=== PATIENT | male | born 1935 | race Caucasian/White ===

== ENCOUNTER 2020-11-18 12:29 | Emergency (ER) | payer OTHER, MEDICAID ==
[~2020-11-18] VITALS: Ht 160 cm; Wt 54.4 kg
--- NOTE | 2020-11-18 12:29 | NUR ---
Patient BIBA BLS, transferred to bed 5. RN evaluating the patient at bedside.
[2020-11-18 12:32] VITALS: BP 127/85
--- NOTE | 2020-11-18 12:38 | NUR ---
84 y/o male biba from home c/o black tarry stools x 5 days. Told by primary care doctor to visit er. States minor abd discomfort. Left sided abd discomfort. Abd soft, non tender to palp. Awake and alert. Placed on bedside monitor. 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
--- NOTE | 2020-11-18 12:45 | NUR ---
Dr. Cutler is evaluating the patient at bedside.
[2020-11-18 12:55] LABS: BASOPHILS # (AUTO) 0.1 K/uL (0.00-0.22); BASOPHILS % (AUTO) 2.2 % (0.0-2.0); EOSINOPHILS # (AUTO) 0.1 K/uL (0-0.4); EOSINOPHILS % (AUTO) 1.8 % (0.0-4.0); HEMATOCRIT 38.5 % (36-52); HEMOGLOBIN 12.8 g/dL (12.0-18.0); LYMPHOCYTES # (AUTO) 0.5 K/uL (2.0-11.5); LYMPHOCYTES % (AUTO) 10.7 % (20.5-51.1); MEAN CORPUSCULAR HEMOGLOBIN 30 pg (27-31); MEAN CORPUSCULAR HGB CONC 33 g/dL (33-37); MEAN CORPUSCULAR VOLUME 88.4 fL (80-94); MONOCYTES # (AUTO) 0.2 K/uL (0.8-1.0); MONOCYTES % (AUTO) 5.7 % (1.7-9.3); NEUTROPHILS # (AUTO) 3.5 K/uL (1.8-7.7); NEUTROPHILS % (AUTO) 79.6 % (42.2-75.2); PLATELET COUNT (AUTO) 166 K/uL (140-450); RED BLOOD CELL COUNT(AUTO) 4.35 MIL/uL (4.20-6.10); RED CELL DISTRIBUTION WIDTH 15.9 % (11.6-13.7); WHITE BLOOD COUNT (AUTO) 4.4 K/uL (4.8-10.8)
--- NOTE | 2020-11-18 12:56 | NUR ---
PT NOT ABLE TO PRODUCE URINE SPECIMEN AT THIS TIME.
--- NOTE | 2020-11-18 12:56 | NUR ---
CONSENT FOR CT SECURED AND SIGNED
[2020-11-18] MEDS ORDERED: CARB1TAB37 PO (13:06)
[2020-11-18] MEDS ORDERED: TAMS0.4C96 PO (13:06)
[2020-11-18] MEDS ORDERED: ZYL300 PO (13:06)
[2020-11-18] MEDS ORDERED: DICL-342 PO (13:06)
[2020-11-18] MEDS ORDERED: FLUO40CA6 PO (13:06)
[2020-11-18] MEDS ORDERED: DONE5TAB6 PO (13:06)
[2020-11-18] MEDS ORDERED: VITB12 PO (13:06)
[2020-11-18] MEDS ORDERED: MELA5SGL PO (13:06)
[2020-11-18] MEDS ORDERED: NALO25TA3 PO (13:06)
[2020-11-18] MEDS ORDERED: VITA1TAB44 PO (13:06)
[2020-11-18] MEDS ORDERED: FERR325E14 PO (13:06)
[2020-11-18] MEDS ORDERED: VITB1I PO (13:06)
[2020-11-18] MEDS ORDERED: ASPI-1822 PO (13:06)
[2020-11-18 13:08] LABS: ALBUMIN 3.3 g/dL (3.4-5.0); ANION GAP 9.9 (8-16); ASPARTATE AMINOTRANSFERASE 14 U/L (15-37); CHLORIDE 104 mmol/L (98-107); CREATININE 0.9 mg/dL (0.6-1.3); GLUCOSE 92 mg/dL (74-106); LIPASE 61 U/L (73-393); POTASSIUM 3.9 mmol/L (3.5-5.1); SODIUM SERUM 137 mmol/L (136-145); TOTAL BILIRUBIN 0.5 mg/dL (0.0-1.0); UREA NITROGEN, BLOOD 24 mg/dL (7-18)
[2020-11-18 13:14] LABS: PROTHROMBIN TIME 10.3 secs (10.8-13.4)
--- NOTE | 2020-11-18 13:29 | NUR ---
Patient taken to CT scan via gurney by [facility].
[2020-11-18 15:05] VITALS: BP 127/85
--- NOTE | 2020-11-18 15:06 | NUR ---
Patient discharged with v/s stable. Written and verbal after care instructions given and explained. Patient verbalized understanding. Wheel Chair Assisted with to car. All questions addressed prior to discharge. Advised to follow up with PMD.
== END 2020-11-18 15:06 | disposition home or self-care (01) ==
LOC: MED 12:29
DX: R14.0 Abdominal distension (gaseous) (principal); K92.1 Melena; E11.9 Type 2 diabetes mellitus without complications; J45.909 Unspecified asthma, uncomplicated; I11.9 Hypertensive heart disease without heart failure; F17.210 Nicotine dependence, cigarettes, uncomplicated; Z85.038 Personal history of other malignant neoplasm of large intestine
CPT/HCPCS: 36415; 74177; 80053; 83690; 85025; 85610; 86886; 86900; 86901; 99285; Q9967